=== PATIENT | female | born 2000 | race Caucasian/White ===

== ENCOUNTER 2023-04-01 15:44 | Outpatient (CLI) | payer OTHER, SELFPAY ==
--- NOTE | 2023-04-01 16:00 | CRLHL7_ITS ---
For Patients: As a result of the Century Cures Act, medical imaging exams and procedure reports are released immediately into your electronic medical record. You may view this report before your referring provider. If you have questions, please contact your health care provider. INDICATION: Adenopathy on the right. Comparison none. TECHNIQUE: CT soft tissue neck with IV contrast. ICD 370, 62 cc. FINDINGS: A marker has been placed on the right neck is seen on the or manager images. Above the level of the marker, there is a small 6 mm ovoid nodule within the subcutaneous fat (series 3, image 35) consistent with a normal-sized lymph node. At the level the marker, there is a small 5 mm normal-sized right level 2 lymph node (series 3, image 38). No enlarged cervical lymph nodes, particularly on the right. No supraclavicular or superior mediastinal adenopathy. Nasopharynx and oropharynx are clear. No inflammation within the parapharyngeal fat pads are retropharyngeal space. Normal thickness of the epiglottis. Normal glottis with symmetric vocal cords. Lung apices are clear. Normal alignment the cervical spine. No prevertebral soft tissue swelling. Visualized paranasal sinuses mastoid air cells are clear. IMPRESSION: 1. Above the level of the marker on the right neck, there is a 6 millimeter ovoid nodule in the subcu fat consistent with a normal sized lymph node. At the level of the marker, there is a normal-sized right level 2 lymph node. 2. No enlarged nodes within the remainder of the neck. 3. Normal deep soft tissues of the neck Please note that all CT scans at this facility use dose modulation, iterative reconstruction, and/or weight-based dosing when appropriate to reduce radiation dose to as low as reasonably achievable. Dictated by Gerardo Tucker MD @ 04/04/2023 1:44:18 PM (Electronically Signed)
== END 2023-04-01 15:45 | disposition home or self-care (01) ==
PROVIDERS: PCP Student in an Organized Health Care Education/Training Program; Visit Provider Student in an Organized Health Care Education/Training Program
DX: R59.0 Localized enlarged lymph nodes (principal)
CPT/HCPCS: 70491; Q9967